=== PATIENT | female | born 1985 | race Two or more races ===

== ENCOUNTER 2024-02-14 15:04 | Emergency (ER) | payer MEDICAID, OTHER ==
[~2024-02-14] VITALS: Ht 165.1 cm; Wt 100.4 kg
[2024-02-14 16:15] VITALS: BP 137/95; PULSE 85; RESP 20; TEMP 98.2; O2SAT 97
[2024-02-14] MEDS ORDERED: AMOX875T3 PO (16:25)
[2024-02-14] MEDS ORDERED: IBUP-1456 PO (16:25)
[2024-02-14] MEDS: HYDROcodone-ACET 5/325MG TAB PO ONE (16:33)
== END 2024-02-14 16:45 | disposition home or self-care (01) ==
LOC: ER 15:04
DX: H66.93 Otitis media, unspecified, bilateral (principal); Z79.1 Long term (current) use of non-steroidal anti-inflammatories (NSAID); Z79.2 Long term (current) use of antibiotics